=== PATIENT | male | born 2000 | race Hispanic/Latino ===

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

== ENCOUNTER 2019-06-05 11:56 | Emergency (ER) | payer OTHER ==
[~2019-06-05] VITALS: Ht 182.9 cm; Wt 70.3 kg
--- OUTSIDE RECORDS SUMMARY | ~2019-06-05 | XMS | Clinical Summary ---
Demographics + + + | Address | [address] | | | [place] [address] | + + + | Home Phone | | + + + | Preferred Language | Unknown | + + + | Marital Status | Single | + + + | Catholic Affiliation | Unknown | + + + | Race | Unknown | + + + | Ethnic Group | Unknown | + + + Author + + + | Author | [facility] (Historical as of | | | 03-25-19) | + + + | Organization | [facility] (Historical as of | | | 03-25-19) | + + + | Address | Unknown | + + + | Phone | Unavailable | + + + Support + + + + + | Name | Relationship | Address | Phone | + + + + + | Carolann Sanchez | ECON | [address] | | | | [place] | | | | | [address] | | + + + + + Care Team Providers + +------+ + | Care Digital Media Strategist Name | Role | Phone | + +------+ + | Parvin Cleaning MD | PP | | + +------+ + Allergies No Known Allergies Current Medications + + +-------+---------+------+------+-------+ | Prescription | Sig. | Disp. | Refills | Star | End | Statu | | | | | | t | Date | s | | | | | | Date | | | + + +-------+---------+------+------+-------+ | polyethylene | Take 17 g by mouth | | | | | Activ | | glycol (GLYCOLAX) | daily. | | | | | e | | packet | | | | | | | + + +-------+---------+------+------+-------+ Active Problems + + + | Problem | Noted Date | + + + | Hematuria | 10/10/2012 | + + + Family History + +------+--------+ + | Relation | Name | Status | Comments | + +------+--------+ + | Father | | Alive | | + +------+--------+ + | Mother | | Alive | | + +------+--------+ + Social History + +-------+ +--------+------+ | Tobacco Use | Types | Packs/Day | Years | Date | | | | | Used | | + +-------+ +--------+------+ | Never Smoker | | | | | + +-------+ +--------+------+ + +---+---+---+ | Smokeless Tobacco: | | | | | Never Used | | | | + +---+---+---+ + + +---------+ + | Alcohol Use | Drinks/We | oz/Week | Comments | | | ek | | | + + +---------+ + | No | | | | + + +---------+ + + + + | Sex Assigned at | Date Recorded | | | | + + + | Not on file | | + + + Last Filed Vital Signs + + + + | Vital Sign | Reading | Time Taken | + + + + | Blood Pressure | 123/77 | 10/10/2012 2:55 PM PST | + + + + | Pulse | 59 | 10/10/2012 2:55 PM PST | + + + + | Temperature | 37.1 C (98.7 F) | 10/10/2012 2:55 PM PST | + + + + | Respiratory Rate | - | - | + + + + | Oxygen Saturation | - | - | + + + + | Inhaled Oxygen | - | - | | Concentration | | | + + + + | Weight | 58.4 kg (128 lb 11.2 | 10/10/2012 2:55 PM PST | | | oz) | | + + + + | Height | 172.7 cm (5' 8") | 10/10/2012 2:55 PM PST | + + + + | Body Mass Index | 19.57 | 10/10/2012 2:55 PM PST | + + + + Plan of Treatment Not on file Results Not on filefrom Last 3 Months Insurance + +--------+ +------+-------+ + | Payer | Benefi | Subscriber | Type | Phone | Address | | | t Plan | ID | | | | | | / | | | | | | | Group | | | | | + +--------+ +------+-------+ + | MEDICAID | [employer] | [id number] | | | [address] | | | N | | | | [place] | | | [place] | | | | [phone] | | | [employer]ER | | | | | + +--------+ +------+-------+ + + +--------+ +--------+ + + | Guarantor Name | Accoun | Relation to | Date | Phone | Billing Address | | | t Type | Patient | of | | | | | | | | | | + +--------+ +--------+ + + | CAROLANN SANCHEZ | Person | Mother | [birth year] | Home: | [address] | | | al/Fam | | 1992 | [phone] | [place] [address] | | | anurag | | | 1943 | | + +--------+ +--------+ + +
--- OUTSIDE RECORDS SUMMARY | ~2019-06-05 | XMS | Clinical Summary ---
Demographics + + + | Address | [address] | | | [place] [address] | + + + | Home Phone | | + + + | Preferred Language | Unknown | + + + | Marital Status | Single | + + + | Taoism Affiliation | Unknown | + + + | Race | Unknown | + + + | Ethnic Group | Unknown | + + + Author + + + | Author | [facility] (Historical as of | | | 03-25-19) | + + + | Organization | [facility] (Historical as of | | | 03-25-19) | + + + | Address | Unknown | + + + | Phone | Unavailable | + + + Support + + + + + | Name | Relationship | Address | Phone | + + + + + | Caroalnn Sanchez | ECON | [address] | | | | | [place] | | | | | [address] | | + + + + + Care Team Providers + +------+ + | Care Heeler Machine Name | Role | Phone | + [...] +------+-------+ + | MEDICAID | [place] | [id number] | | | [address] | | | N | | | | [place] | | | [place] | | | | [phone] | | | [place] | | | | | + +--------+ [...] | | al/Fam | | 1992 | [phone] | [place] [address] | | | anurag | | | 1943 | | + +--------+ +--------+ + +
[2019-06-05] MEDS ORDERED: CYCLOBENZAPRINE10 MG PO (12:20)
[2019-06-05] MEDS ORDERED: INDOMETHACIN50 MG PO (12:20)
== END 2019-06-05 12:30 | disposition home or self-care (01) ==
LOC: ED 11:56
DX: S29.9XXA Unspecified injury of thorax, initial encounter (principal); X58.XXXA Exposure to other specified factors, initial encounter
CPT/HCPCS: 99283

== ENCOUNTER 2020-09-27 06:35 | Emergency (ER) | payer OTHER ==
[~2020-09-27] VITALS: Ht 182.9 cm; Wt 70.3 kg
[~2020-09-27 06:35] MED LIST: CYCLOBENZAPRINE10 MG PO; INDOMETHACIN50 MG PO
[2020-09-27] MEDS ORDERED: ONDANSETRON ODT8 MG PO (08:52)
[2020-09-27] MEDS ORDERED: HYDROCODON-ACE1 EA11 PO (08:52)
[2020-09-27] MEDS ORDERED: FLOMAX0.4 MG PO (08:52)
== END 2020-09-27 09:05 | disposition home or self-care (01) ==
LOC: ED 06:35
DX: N13.2 Hydronephrosis with renal and ureteral calculous obstruction (principal); N13.9 Obstructive and reflux uropathy, unspecified
CPT/HCPCS: 74177; 80053; 81001; 85025; 99284-25; A9270; J7030; Q9967

== ENCOUNTER 2020-10-03 10:22 | Emergency (ER) | payer OTHER ==
[~2020-10-03] VITALS: Ht 182.9 cm; Wt 70.3 kg
[~2020-10-03 10:22] MED LIST changes: +FLOMAX0.4 MG PO; +HYDROCODON-ACE1 EA11 PO; +ONDANSETRON ODT8 MG PO
--- OUTSIDE RECORDS SUMMARY | 2020-10-03 10:26 | XMS ---
PreManage Notification: SAMMY LOVELL Security Customs Examiner Events No recent Security Events currently on file CRITERIA MET - [facility] - 2 Visits in 30 Days CARE PROVIDERS There are no care providers on record at this time. Edyta has no Care Guidelines for this patient. [facility] ([facility] MO.) [facility] NOTE: Visits indicate total known visits. ED/C VISIT TRACKING (12 MO.) [facility]2020 [facility] [place] [facility] COMPLAINT: - R FLANK PAIN, BLACK STOOL 09/27/2020 06:[address] [facility] [place] TYPE: Emergency COMPLAINT: - FALL, RIGHT SIDE PAIN, BLOOD IN URINE DIAGNOSES: - Hydronephrosis with renal and ureteral calculous obstruction - Unspecified abdominal pain - Obstructive and reflux uropathy, unspecified INPATIENT VISIT TRACKING (12 MO.) No inpatient visits to display in this time frame [email or web address]
== END 2020-10-03 11:56 | disposition home or self-care (01) ==
LOC: ED 10:22
DX: N20.1 Calculus of ureter (principal)
CPT/HCPCS: 81001; 85025; 99284

== ENCOUNTER 2020-10-09 17:32 | Emergency (ER) | payer OTHER ==
[~2020-10-09] VITALS: Ht 182.9 cm; Wt 70.3 kg
--- OUTSIDE RECORDS SUMMARY | 2020-10-09 17:34 | XMS ---
PreManage Notification: SAMMY LOVELL Security Chef Under Events No recent Security Events currently on file CRITERIA MET - Group Notification - [facility] - 2 Visits in 30 Days CARE PROVIDERS There are no care providers on record at this time. Edyta has no Care Guidelines for this patient. Tracey VISIT COUNT (12 MO.) 3 [facility] TOTAL 3 NOTE: Visits indicate total known visits. ED/C VISIT TRACKING (12 MO.) 10/09/2020 17:[facility] [place] [facility] COMPLAINT: - R FLANK PAIN, VOMITING 10/03/2020 10:23 [facility] [place] TYPE: Emergency COMPLAINT: - R FLANK PAIN, BLACK STOOL DIAGNOSES: - Calculus of ureter - Unspecified abdominal pain 09/27/2020 06:35 [facility] [place] TYPE: Emergency COMPLAINT: - FALL, RIGHT SIDE PAIN, BLOOD IN URINE DIAGNOSES: - Hydronephrosis with renal and ureteral calculous obstruction - Unspecified abdominal pain - Obstructive and reflux uropathy, unspecified INPATIENT VISIT TRACKING (12 MO.) No inpatient visits to display in this time frame [id number]
== END 2020-10-09 19:42 | disposition home or self-care (01) ==
LOC: ED 17:32
DX: N20.2 Calculus of kidney with calculus of ureter (principal)
CPT/HCPCS: 74018; 80053; 85025; 96374; 99284-25; J1885; J7030

== ENCOUNTER 2020-11-01 05:20 | Emergency (ER) | payer OTHER ==
[~2020-11-01] VITALS: Ht 182.9 cm; Wt 70.3 kg
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
[2020-11-01] MEDS ORDERED: PROMETHAZINE HC25 M1 PO (06:36)
[2020-11-01] MEDS ORDERED: HYDROCODON-ACE1 EA10 PO (06:36)
== END 2020-11-01 07:00 | disposition home or self-care (01) ==
LOC: ED 05:20
DX: N23 Unspecified renal colic (principal); Z87.442 Personal history of urinary calculi
CPT/HCPCS: 81001; 96372; 99284; J1170; J1885

== ENCOUNTER 2021-08-15 09:50 | Emergency (ER) | payer OTHER ==
[~2021-08-15] VITALS: Ht 182.9 cm; Wt 70.3 kg
[~2021-08-15 09:50] MED LIST changes: +HYDROCODON-ACE1 EA10 PO; +PROMETHAZINE HC25 M1 PO
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
[2021-08-16] MEDS ORDERED: FLOMAX0.4 MG PO (09:27)
[2021-08-16] MEDS ORDERED: ONDANSETRON ODT4 MG PO (09:27)
[2021-08-16] MEDS ORDERED: HYDROCODON-ACE1 EA10 PO (09:27)
--- NOTE | 2021-08-17 16:28 | EKG ---
[facility] [address] [place], [place] [address] Signed Normal sinus rhythm Right axis deviation Incomplete right bundle branch block Abnormal ECG No previous ECGs available Confirmed by NESTOR DURÁN DO ([id number]) on 08/17/2021 4:28:08 PM Electronically Signed By: NESTOR DURÁN DO 08/17/21 1628 PATIENT NAME: SAMMY LOVELL JEFFERY Electrocardiogram DATE OF : 89 PHYSICIAN: NESTOR DURÁN DO REPORT #: [id number] REPORT IS CONFIDENTIAL AND NOT TO BE RELEASED WITHOUT AUTHORIZATION
== END 2021-08-15 13:46 | disposition home or self-care (01) ==
LOC: ED 09:50
DX: R07.89 Other chest pain (principal)
CPT/HCPCS: 71046; 93005; 93010; 99285-25

== ENCOUNTER 2021-08-16 06:32 | Emergency (ER) | payer OTHER ==
[~2021-08-16] VITALS: Ht 180.3 cm; Wt 70.3 kg
--- OUTSIDE RECORDS SUMMARY | 2021-08-16 06:34 | XMS ---
PreManage Notification: SAMMY LOVELL Security Sample Finisher Events No recent Security Events currently on file CRITERIA MET - [facility] - 2 Visits in 30 Days - Group Notification CARE PROVIDERS There are no care providers on record at this time. Edyta has no Care Guidelines for this patient. Care History Medical/Surgical 10/14/2020 [facility] - [facility] CALLED PATIENT AND LEFT A VOICEMAIL FOR A RETURN CALL- PATIENT DOES NOT HAVE A PCP LISTED. EGarrett VISIT COUNT (12 MO.) 6 [facility] TOTAL 6 NOTE: Visits indicate total known visits. ED/C VISIT TRACKING (12 MO.) 08/16/2021 06:33 [facility] [place] TYPE: Emergency COMPLAINT: - VOMITING 08/15/2021 09:51 [facility] [place] [facility] [place] TYPE: Emergency COMPLAINT: - CHEST PAIN 11/01/2020 05:20 [facility] [place] [place]: Emergency COMPLAINT: - BLOOD IN URINE DIAGNOSES: - Unspecified renal colic - Unspecified abdominal pain - Personal history of urinary calculi - Calculus of kidney 10/09/2020 17:33 [facility] [place] [facility] COMPLAINT: - R FLANK PAIN, VOMITING DIAGNOSES: - Calculus of kidney with calculus of ureter - Right lower quadrant pain 10/03/2020 10:23 [facility] [place] TYPE: Emergency [...] visits to display in this time frame [email or web address]
[2021-08-16] MEDS ORDERED: FLOMAX0.4 MG PO (09:27)
[2021-08-16] MEDS ORDERED: HYDROCODON-ACE1 EA10 PO (09:27)
[2021-08-16] MEDS ORDERED: ONDANSETRON ODT4 MG PO (09:27)
== END 2021-08-16 10:54 | disposition home or self-care (01) ==
LOC: ED 06:32
DX: N20.1 Calculus of ureter (principal)
CPT/HCPCS: 80048; 81001; 85025; 96374; 96375; 96376; 99284-25; J0780; J1885; J2270; J2405; J2765; J7030

== ENCOUNTER 2021-08-21 04:49 | Emergency (ER) | payer OTHER ==
[~2021-08-21] VITALS: Ht 180.3 cm; Wt 70.3 kg
[~2021-08-21 04:49] MED LIST changes: +ONDANSETRON ODT4 MG PO
--- OUTSIDE RECORDS SUMMARY | 2021-08-21 04:52 | XMS ---
PreManage Notification: SAMMY LOVELL Security Automation Design Engineer Events No recent Security Events currently on file CRITERIA MET - [facility] - 2 Visits in 30 Days - [facility] CARE PROVIDERS ERWIN ADAM Physician Foreign Student Adviser Teacher 08/18/2021-Current PHONE: Unknown Edyta has no Care Guidelines for this patient. Care History Medical/Surgical 10/14/2020 [facility] - [facility] CALLED PATIENT AND LEFT A VOICEMAIL FOR A RETURN CALL- PATIENT DOES NOT HAVE A PCP LISTED. Tracey VISIT COUNT (12 MO.) 7 [facility] TOTAL 7 NOTE: Visits indicate total known visits. ED/UCC VISIT TRACKING (12 MO.) 08/21/2021 04:50 [facility] [place] TYPE: Emergency COMPLAINT: - FLANK/ ABD PAIN, URINE PROBLEM 08/16/2021 06:33 [facility] [place] TYPE: Emergency COMPLAINT: - VOMITING DIAGNOSES: - Calculus of ureter - Unspecified abdominal pain 08/15/2021 09:51 [facility] [place] TYPE: Emergency COMPLAINT: - CHEST PAIN DIAGNOSES: - Other chest pain 11/01/2020 05:20 [facility] [place] [facility] [place]: Emergency COMPLAINT: - BLOOD IN URINE DIAGNOSES: - Unspecified renal colic - Unspecified abdominal pain - Personal history of urinary calculi - Calculus of kidney 10/09/2020 17:33 [facility] [place] TYPE: Emergency COMPLAINT: - R FLANK PAIN, VOMITING DIAGNOSES: - Calculus of kidney with calculus of ureter - Right lower quadrant pain 10/03/2020 10:23 [facility] [place] TYPE: Emergency COMPLAINT: - R FLANK PAIN, BLACK STOOL DIAGNOSES: - Calculus of ureter - Unspecified abdominal pain 09/27/2020 06:35 [facility] [place] TYPE: Emergency COMPLAINT: - FALL, RIGHT SIDE PAIN, BLOOD IN URINE DIAGNOSES: - Hydronephrosis with renal and ureteral calculous obstruction - Unspecified abdominal pain - Obstructive and reflux uropathy, unspecified INPATIENT VISIT TRACKING (12 MO.) No inpatient visits to display in this time frame [email or web address]
[2021-08-21] MEDS ORDERED: PHENAZOPYRIDIN200 MG PO (05:11)
== END 2021-08-21 07:55 | disposition home or self-care (01) ==
LOC: ED 04:49
DX: N20.0 Calculus of kidney (principal); R31.9 Hematuria, unspecified; Z79.899 Other long term (current) drug therapy; Z87.442 Personal history of urinary calculi
CPT/HCPCS: 74176; 80048; 81001; 85025; 99284-25

== ENCOUNTER 2022-01-09 05:32 | Emergency (ER) | payer OTHER ==
[~2022-01-09] VITALS: Ht 180.3 cm; Wt 62.5 kg
[~2022-01-09 05:32] MED LIST changes: +PHENAZOPYRIDIN200 MG PO
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
== END 2022-01-09 05:54 | disposition home or self-care (01) ==
LOC: ED 05:32
DX: K91.840 Postprocedural hemorrhage of a digestive system organ or structure following a digestive system procedure (principal); Y83.8 Other surgical procedures as the cause of abnormal reaction of the patient, or of later complication, without mention of misadventure at the time of the procedure
CPT/HCPCS: 99283

== ENCOUNTER 2022-06-24 20:52 | Emergency (ER) | payer OTHER ==
[~2022-06-24] VITALS: Ht 177.8 cm; Wt 70.3 kg
== END 2022-06-24 21:45 | disposition home or self-care (01) ==
LOC: ED 20:52
DX: R31.9 Hematuria, unspecified (principal); Z87.442 Personal history of urinary calculi
CPT/HCPCS: 81001; 99283